=== PATIENT | female | born 1950 | race Caucasian/White ===

== ENCOUNTER → 2019-10-21 11:04 | Outpatient (CLI) | payer MEDICARE, SELFPAY ==
--- NOTE | ~2019-10-21 | MR_ITS ---
EXAMINATION: MR lumbar spine wo con DATE: 10/21/2019 11:41 INDICATION: Low back pain. Left leg pain. TECHNIQUE: Magnetic resonance imaging (MRI) of the lumbar spine was performed without intravenous con trast. Sequences included sagittal T2-weighted FSE, sagittal T2-weighted FS FSE, sagittal T1-weighted FSE, and axial T2-weighted FSE. COMPARISON: Lumbar spine MRI 06/02/2018 FINDINGS: There is 8 degrees dextrocurvature of the lumbar spine. There is 4 mm retrolisthesis of L5 on S1. Vertebral body heights are normal. There is severely decreased disc height from T12-L1 through L5-S1. There are changes of posterior fusion procedure from L3 to L5 with pedicle screws. There are changes of laminectomy at L4 and laminotomy at L3 with small seroma in the post-laminectomy space. Th e distal spinal cord signal intensity is normal. The conus medullaris is at L1. The following disc le vels are specifically discussed: L1-L2: The disc is bulging and has an annular fissure. There is moderate right and mild left facet moe int osteoarthritis. There is mild bilateral neural foraminal stenosis. There is mild central canal st enosis. L2-L3: The disc is bulging and has an annular fissure. There is moderate bilateral facet joint osteoa rthritis. There is moderate bilateral neural foraminal stenosis. There is moderate central canal sten osis. L3-L4: The disc is bulging and has an annular fissure. There is moderate right and mild left facet moe int hypertrophy. There is moderate bilateral neural foraminal stenosis. There is mild central canal s tenosis with posterior decompression. L4-L5: The disc is bulging and has an annular fissure. There is mild right facet joint hypertrophy. T here is moderate right and mild left neural foraminal stenosis. There is mild central canal stenosis with posterior decompression. L5-S1: The disc is bulging and has an annular fissure. There is severe bilateral facet joint osteoart hritis. There is moderate bilateral neural foraminal stenosis. There is mild central canal stenosis. IMPRESSION: 1. Severe lumbar spondylosis, stable from 06/02/2018. 2. Posterior fusion procedure from L3 to L5. Reviewed, dictated and finalized at location A.
== END ==
PROVIDERS: Visit Provider Nurse Practitioner Adult Health
DX: M47.26 Other spondylosis with radiculopathy, lumbar region (principal); Z98.1 Arthrodesis status
CPT/HCPCS: 72148

== ENCOUNTER 2019-11-08 12:07 | Emergency (ER) | payer MEDICARE, SELFPAY ==
--- NOTE | ~2019-11-08 | CT_ITS ---
EXAMINATION: CT brain wo con, CT orbit BI wo con EXAM DATE: 11/08/2019 13:18 INDICATION: Initial encounter following injury, with pain of the right frontal region, eye injury. D ouble vision. Fall. TECHNIQUE: Spiral CT of the head was performed without contrast. Axial, coronal and sagittal images were reviewed. Spiral CT of the orbits was performed without contrast. Axial images were reviewed. Coronal and sagittal reformatted images were also reviewed. The dose-length product (DLP) for this e xamination was 605.33 (accession [id number]), 161.23 (accession [id number]) mGy-cm. The expo sure was tailored according to patient size, and iterative reconstruction (ASIR) was used as addition al dose reduction technique. There is a prior head CT from 09/29/2012 for comparison. 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 There is no acute intraparenchymal hemor rhage. No evidence of intraparenchymal brain mass lesion. No evidence of acute infarction. There i s no mass effect or midline shift. There is no obstructive hydrocephalus suspected. There are no ext ra-axial collections. There are no calvarial acute fractures. Probable small frontal scalp contusio n. ORBIT CT: There is right orbital inferior orbital wall fracture with about 5 mm inferior displacemen t, small amount of extraconal gas within the right orbit from the maxillary sinus. The inferior rectu s muscle has slightly lower than expected course compared to the contralateral side, but does not claudia ear entrapped. Small amount of right maxillary sinus hemorrhage. No other acute fractures are identif ied. Sinuses and mastoid air cells are otherwise well aerated. Globes are symmetric and unremarkable. The retrobulbar fat is clear. IMPRESSION: 1. No acute intracranial findings. 2. Acute right orbital blowout fracture. 3. Probable small right frontal scalp contusion. Reviewed, dictated and finalized at location B. IMPRESSION: 1. No acute intracranial findings. 2. Acute right orbital blowout fracture. 3. Probable small right frontal scalp contusion.
[2019-11-08 12:33] VITALS: BP 112/52; PULSE 76; RESP 16; TEMP 36.2; O2SAT 99
--- NOTE | 2019-11-08 13:05 | ED.GENADULT ---
HPI - General Adult General Chief complaint: Fall Stated complaint: R EYE INJURY S/P FALL Time Seen by Provider: 11/08/19 12:30 Source: patient History of Present Illness HPI narrative: Patient is a 68 y/o female complaining of fall and right facial pain. She states that she was attempting to pull a weed and fell down on face instead. This occurred approximately 1 hour ago. She state that her face might have hit a rock. Her glasses were broken. She has some right face and periorbital pain. She rates her pain as 6/10. She states that her pain gets worse and shoots to her gum when she blows her nose. She also feels that she is seeing double. She denies any LOC, neck pain, back pain, chest pain or abdominal pain. She is able to move all 4 extremities and ambulate without difficulty after the fall. She states that her last Tetanus shot was 4 years ago. Related Data Home Medications Medication Instructions Recorded Confirmed levothyroxine [Synthroid] 112 mcg PO DAILY 11/08/19 metoprolol tartrate 50 mg PO DAILY 11/08/19 sertraline [Zoloft] 100 mg PO DAILY 11/08/19 Allergies Allergy/AdvReac Type Severity Reaction Status Date / Time No Known Allergies Allergy Mild Unverified 07/09/06 13:49 Review of Systems Constitutional: Constitutional: Denies chills, Denies fever(s) and Denies weakness Eyes: Eyes: Reports blurry vision and Reports diplopia ENT: Reports facial pain, Reports headache(s) and Denies neck pain Cardiovascular: Cardiovascular: Denies chest pain and Denies dyspnea Respiratory: Respiratory: Denies cough and Denies dyspnea Gastrointestinal: Gastrointestinal: Denies abdominal pain, Denies diarrhea, Denies nausea and Denies vomiting Genitourinary: Genitourinary: Denies hematuria and Denies dysuria Musculoskeletal: Musculoskeletal: Denies back pain and Denies neck pain Neurologic: Denies weakness [facility] Social History Social History Gender identity (if verbalized by the patient): Female Exam Const: General: no acute distress and well developed Orientation/consciousness: oriented to person, oriented to place, oriented to time and patient oriented x3 HENMT: Head: normocephalic Ears: external ears normal General nose exam: Normal external nose present Eyes: General: appearance normal, both eyes and all related structures Conjunctivae: conjunctivae normal Neck: Neck: normal visual inspection and full ROM Chest: Chest palpation & inspection: normal inspection of the chest and no tenderness Resp: Effort & Inspection: normal respiratory effort Auscultation: clear to auscultation bilaterally Cardio: Rate: regular rate Rhythm: regular rhythm GI: GI Palp: No abdominal tenderness and Yes Soft to palpation Skin: General skin exam: normal color and turgor normal Trauma: abrasion (right forearm and right face) Neuro: General: oriented to person, oriented to place, oriented to time and patient oriented x3 Cranial nerves: Yes Bilaterally intact EOM present Cognition (Neuro): normal cognition Speech: normal speech Motor exam (neuro): 5/5 motor strength present throughout Sensory Exam: normal sensation Coordination: [id number] test normal and [id number]-[id number] test normal Extrem: General: normal to inspection, full ROM and no pedal edema Psych: Appearance: grossly normal Mental Status: mental status grossly normal Affect: normal affect Course Consultations Consultation #1: Discussed with Dr. Parisi, who states that patient can follow up with him tomorrow. He also recommends starting patient on Keflex. Date: 11/08/19 Time: 14:29 Vital Signs Vital signs: Vital Signs Temperature 36.2 C L 11/08/19 12:33 Pulse Rate 76 11/08/19 12:33 Respiratory Rate 16 11/08/19 12:33 Blood Pressure 112/52 L 11/08/19 12:33 Pulse Oximetry 99 11/08/19 12:33 Temperature 36.2 C L 11/08/19 12:33 Pulse Rate 76 11/08/19 12:33 Respiratory Rate 16
[2019-11-08 14:51] VITALS: BP 107/90; PULSE 67; RESP 16; TEMP 36.9; O2SAT 98
== END 2019-11-08 14:52 | disposition home or self-care (01) ==
PROVIDERS: Emergency Provider Emergency Medicine
DX: S02.31XA Fracture of orbital floor, right side, initial encounter for closed fracture (principal); S50.811A Abrasion of right forearm, initial encounter; S00.81XA Abrasion of other part of head, initial encounter; W18.39XA Other fall on same level, initial encounter
CPT/HCPCS: 70450; 70480; 99284

== ENCOUNTER 2020-08-02 15:00 | Emergency (ER) | payer MEDICARE, SELFPAY ==
--- NOTE | ~2020-08-02 | XR_ITS ---
EXAMINATION: XR foot RT 2V EXAM DATE: 08/02/2020 15:41 INDICATION: POSS FB dist Rt 2nd metatarsal x 4 days. TECHNIQUE: Frontal and lateral projections of the right foot.. There is no prior study for comparis on. FINDINGS: On the lateral projection there is a tiny sliver-like density identified in the subcutaneo us fat volar aspect of the forefoot. This has been indicated on the lateral projection for your revie w. Can't specifically identify this on the frontal projection. There are no acute fractures identifie d. IMPRESSION: Tiny sliver-like foreign body along the volar fat pad of forefoot. Reviewed, dictated and finalized at location B.
[2020-08-02 15:06] VITALS: BP 137/66; PULSE 79; RESP 12; TEMP 36.4; O2SAT 98
--- NOTE | 2020-08-02 15:06 | ED.LOWEXIN ---
HPI - Extremity Injury (Lower) General Chief Complaint: Extremity Problem,Nontraumatic Stated Complaint: FB in rt foot Time Seen by Provider: 08/02/20 15:08 Source: patient and RN notes reviewed Mode of arrival: ambulatory Limitations: no limitations History of Present Illness HPI Narrative: 69-year-old female presents to the [facility] with complaints of foot pain. States 5 days ago she went to put her garden shoes on and since has felt pain, redness and swelling to the ball of her foot. Has had increased pain when she walks. Feels like there is an object in her planter right foot. Last Tdap 2017 Related Data Home Medications Medication Instructions Recorded Confirmed levothyroxine [Synthroid] 112 mcg PO DAILY 11/08/19 08/02/20 metoprolol tartrate 50 mg PO DAILY 11/08/19 08/02/20 sertraline [Zoloft] 100 mg PO DAILY 11/08/19 08/02/20 [place] Mix PO 11/09/19 betamethasone valerate 0.1 % 1 applic TOPICAL BID PRN 11/09/19 08/02/20 topical ointment clobetasol 0.05 % topical ointment TOPICAL 11/09/19 dexamethasone 0.5 mg/5 mL oral 0.5 mg PO BID PRN 11/09/19 08/02/20 solution triamcinolone acetonide 0.1 % 1 applic TOPICAL DAILY 11/09/19 08/02/20 topical ointment Allergies Allergy/AdvReac Type Severity Reaction Status Date / Time No Known Allergies Allergy Mild Verified 08/02/20 15:08 Review of Systems Review of Systems: All systems reviewed & are unremarkable except as noted in HPI and below Constitutional: Constitutional: Reports no additional constitutional complaints, Denies chills and Denies fever(s) Eyes: Eyes: Reports no additional eye complaints Cardiovascular: Cardiovascular: Reports no additional cardiovascular complaints and Denies chest pain Respiratory: Respiratory: Reports no additional respiratory complaints, Denies cough and Denies dyspnea Gastrointestinal: Gastrointestinal: Reports no additional gastrointestinal complaints Musculoskeletal: Musculoskeletal: Reports as per HPI Integumentary/Breasts: Skin/Breast: Reports as per HPI Neurologic: Reports system reviewed and no additional complaints, except as documented Psychiatric: Psychiatric: Reports no additional psychiatric complaints Hematologic/Lymphatic: Hematologic/Lymphatic: Reports no additional hematologic/lymphatic complaints PMFSH Surgical History Surgical History History of back surgery 2017 - spinal fusion lumber, cervical 2006 History of cancer surgery 2010 History of cholecystectomy 2018 Social History Social History Smoking status: Former smoker Alcohol intake: current Substance use: never Substance use type: does not use Gender identity (if verbalized by the patient): Female Comments At the time of my signature, I reviewed and agree with the nursing past medical, surgical, social, and family history. There is no relevant family history pertinent to the patient complaint. Exam Const: General: healthy appearing, no acute distress and alert Nutritional Appearance: well nourished Orientation/consciousness: patient oriented x3 Limitations: no limitations HENMT: Head: normal to inspection Neck: Neck: normal visual inspection, no lymphadenopathy and no meningeal signs Chest: Chest palpation & inspection: normal inspection of the chest Resp: Effort & Inspection: normal respiratory effort and no use of accessory muscles Auscultation: clear to auscultation bilaterally, no crackles, no rales, no rhonchi and no wheezes Cardio: Rate: regular rate Rhythm: regular rhythm Back/Spine/Pelvis: Back: no CVA tenderness Skin: General skin exam: normal color Wounds: wounds noted (Plantar aspect right foot, small black sliver seen, ) Neuro: General: patient oriented x3, moves all extremities, no meningeal signs and no focal motor deficits Speech: normal speech Gait exam (Neuro): Normal gait present Extrem:
[2020-08-02 15:12] VITALS: BP 137/66; PULSE 79; RESP 12; TEMP 36.4; O2SAT 98
--- NOTE | 2020-08-02 17:58 | PC.NURSE ---
1635: after foot soak, the foreign no longer noted-approx 5mm linear opening noted to plantar aspect right foot.
== END 2020-08-02 16:43 | disposition home or self-care (01) ==
PROVIDERS: Emergency Provider Nurse Practitioner
DX: S90.851A Superficial foreign body, right foot, initial encounter (principal); W26.8XXA Contact with other sharp object(s), not elsewhere classified, initial encounter; Z87.891 Personal history of nicotine dependence; I10 Essential (primary) hypertension; E03.9 Hypothyroidism, unspecified; Z85.40 Personal history of malignant neoplasm of unspecified female genital organ
CPT/HCPCS: 73620; 99213; G0463

== ENCOUNTER → 2021-05-23 12:31 | Outpatient (CLI) | payer MEDICARE, SELFPAY ==
--- NOTE | ~2021-05-23 | MR_ITS ---
EXAMINATION: MR lumbar spine wo con DATE: 05/23/2021 13:07 INDICATION: Radiculopathy, lumbar region. TECHNIQUE: Magnetic resonance imaging (MRI) of the lumbar spine was performed without intravenous con trast. Sequences included sagittal T2-weighted FSE, sagittal T2-weighted FS FSE, sagittal T1-weighted FSE, and axial T2-weighted FSE. COMPARISON: Lumbar spine MRI 10/21/2019 FINDINGS: There is 3 degrees dextrocurvature of thoracolumbar spine. There is 3 mm retrolisthesis of L5 on S1. There are changes of posterior fusion procedure from L3 to L5 with pedicle screws. Vertebra l body heights are normal. There is severely decreased disc height from T10-T11 through L5-S1 with en dplate remodeling. There is interbody fusion at L4-L5. The distal spinal cord signal intensity is nor mal. The conus medullaris is at L1. There is a chronic fluid collection at the L4-L5 postlaminectomy surgical bed measuring 3.3 x 1.0 x 3.0 cm, likely a seroma. The following disc levels are specificall y discussed: L1-L2: The disc is bulging and has an annular fissure. There is severe bilateral facet joint osteoart hritis. There is mild bilateral neural foraminal stenosis. There is mild central canal stenosis. L2-L3: The disc is bulging and has an annular fissure. There is severe bilateral facet joint osteoart hritis. There is moderate bilateral neural foraminal stenosis. There is mild central canal stenosis. L3-L4: The disc is bulging and has an annular fissure. There is moderate bilateral facet joint hypert rophy. There is moderate right and mild left neural foraminal stenosis. There is mild central canal s tenosis with posterior decompression. L4-L5: There is moderate bilateral facet joint hypertrophy. There is moderate right and mild left sydnee ral foraminal stenosis. There is mild central canal stenosis with posterior decompression. L5-S1: The disc is bulging and has an annular fissure. There is severe bilateral facet joint osteoart hritis. There is moderate right and severe left neural foraminal stenosis. There is mild central thad l stenosis. IMPRESSION: 1. Severe lumbar spondylosis, stable from 10/21/2019. 2. Posterior fusion procedure from L3 to L5. Reviewed, dictated and finalized at location A.
== END ==
PROVIDERS: Visit Provider Nurse Practitioner Adult Health
DX: M54.16 Radiculopathy, lumbar region (principal); M47.816 Spondylosis without myelopathy or radiculopathy, lumbar region; Z98.1 Arthrodesis status
CPT/HCPCS: 72148

== ENCOUNTER → 2022-10-02 09:32 | Outpatient (CLI) | payer MEDICARE, SELFPAY ==
--- NOTE | ~2022-10-02 | MR_ITS ---
EXAMINATION: MR ankle RT wo con DATE: 10/02/2022 10:06 INDICATION: Achilles tendinitis TECHNIQUE: Magnetic resonance imaging (MRI) of the right ankle was performed without intravenous cont rast. Sequences included sagittal, coronal, and axial proton-density weighted fast spin echo without and with fat saturation. COMPARISON: None. FINDINGS: Medial ankle ligaments: Deep and superficial deltoid ligaments as well as the spring ligament are normal. Lateral ankle ligaments: The anterior and posterior inferior tibiofibular ligaments are normal. The anterior talofibular, calc aneofibular and posterior talofibular ligaments are normal. Tendons: Enthesopathy with moderate tendinosis at the distal Achilles tendon with moderate-sized Achilles calc aneal enthesophytes. Small amount of fluid in the underlying retrocalcaneal bursa consistent with mil d bursitis. The peroneus longus and brevis tendons are normal. The tibialis anterior and extensor kleber lucis longus and extensor digitorum longus tendons are normal. The tibialis posterior, flexor digitor um longus and flexor hallucis longus tendons are normal. Plantar fascia: Small plantar calcaneal spur at the insertion of the normal plantar aponeurosis. Bones/other: Bone alignment is normal. Normal marrow signal with no fracture or pathologic marrow replacing proces s. Fluid: Physiologic amount of fluid in the joint spaces. IMPRESSION: 1. Moderate insertional tendinosis/enthesopathy of the distal Achilles tendon with moderate-sized Ach illes calcaneal enthesophytes and associated mild retrocalcaneal bursitis. Reviewed, dictated and finalized at location A. IMPRESSION: 1. Moderate insertional tendinosis/enthesopathy of the distal Achilles tendon w ith moderate-sized Achilles calcaneal enthesophytes and associated mild retroca lcaneal bursitis.
== END ==
PROVIDERS: PCP Podiatrist Foot & Ankle Surgery; Visit Provider Podiatrist Foot & Ankle Surgery
DX: M76.61 Achilles tendinitis, right leg (principal)
CPT/HCPCS: 73721

== ENCOUNTER 2023-12-24 10:46 | Outpatient (CLI) | payer MEDICARE, SELFPAY ==
[2023-12-24 11:19] LABS: Hematocrit 46.5 % (37.0-47.0); Immature Platelet Fraction Pct 4.7 % (0.9-11.2); Mean Corpuscular HGB Conc 32.3 g/dl (32-36); Mean Corpuscular Hemoglobin 29.3 pg (26-34); Mean Corpuscular Volume 90.8 fl (80-100); Platelet Count Result 123 k/mm3 (150-375); Red Blood Count 5.12 M/mm3 (4.2-5.4); Red Cell Distribution Width 14.3 % (11.5-14.5); White Blood Count 5.1 K/mm3 (4.5-10.0)
[2023-12-24 11:28] LABS: Alanine Aminotransferase 32 U/L (6-35); Albumin Level 4.4 g/dL (3.5-5.1); Alkaline Phosphatase 92 U/L (38-126); Anion Gap 6 mmol/L (4-12); Aspartate Amino Transferase 34 U/L (14-36); Bilirubin,Total 1.3 mg/dL (0.2-1.3); Blood Urea Nitrogen 17 mg/dL (7-17); Calcium 9.6 mg/dL (8.4-10.2); Carbon Dioxide 28 mmol/L (22-30); Chloride 104 mmol/L (98-107); Cholesterol 147 mg/dL (0-200); Estimated Glomerular Filt Rate > 60; Glucose 103 mg/dL (65-110); HDL Direct 68 mg/dL; Hemoglobin A1C 5.6 % (<5.7); Potassium 4.3 mmol/L (3.4-5.0); Sodium 138 mmol/L (137-145); Triglycerides 68 mg/dL (<150)
[2023-12-24 11:39] LABS: LDL Cholesterol Direct 57 mg/dL
[2023-12-24 11:59] LABS: Vitamin D 25 Hydroxy 38.8 ng/mL
[2023-12-24 12:13] LABS: Thyroid Stimulating Hormone Reflex < 0.015 uIU/mL (0.465-4.68)
[2023-12-24 13:05] LABS: Free T4 Free Thyroxine Reflex 1.56 ng/dL (0.78-2.19)
[2023-12-24 13:48] LABS: Total Triiodothyronine (T3) 1.48 NG/ML (0.97-1.69)
== END 2023-12-24 10:47 | disposition home or self-care (01) ==
LOC: ANHLAB 10:47
PROVIDERS: PCP Nurse Practitioner Family; Visit Provider Nurse Practitioner Family
DX: N89.8 Other specified noninflammatory disorders of vagina (principal); K14.1 Geographic tongue; E55.9 Vitamin D deficiency, unspecified; M47.816 Spondylosis without myelopathy or radiculopathy, lumbar region; F32.9 Major depressive disorder, single episode, unspecified; E03.9 Hypothyroidism, unspecified; I10 Essential (primary) hypertension; Z76.89 Persons encountering health services in other specified circumstances; Z13.1 Encounter for screening for diabetes mellitus; Z85.44 Personal history of malignant neoplasm of other female genital organs; Z68.30 Body mass index [BMI] 30.0-30.9, adult
CPT/HCPCS: 36415; 80053; 80061; 82306; 83036; 84439; 84443; 84480; 85027; 85055

== ENCOUNTER 2024-06-21 14:15 | Outpatient (CLI) | payer MEDICARE, SELFPAY ==
--- OUTSIDE RECORDS SUMMARY | 2024-06-21 14:19 | XMS_ITS | Encounter Summary ---
Author Organization [facility] Health Address [address] [place] [address] Care Team Providers Care Envelope Sealing Machine Operator Name Role Phone Tammy Cook MD Unavailable [phone] Sonia Mosquera MD Unavailable [phone] Isaac Flores MD Unavailable Nishant Eastman MD Unavailable Madalyn Car Primary Care Provider [facility] Kassandra Allen APRN-[employer] Primary Care Provider + Reason for Visit * Reason Onset Date Comments MEDICATION REFILL 12/06/2020 Encounter Details Date Type Department Care Team (Late st Contact Info) Description 12/06/2020 Refill [facility] Medicine [address] [facility] [address] [place] [address] Jelena Paul MD [address] [place] [address] MEDICATION REFILL Social History Tobacco Use Types Packs/Day Years Used Date Smoking Tobacco: Former Cigarettes Q uit: 09/01/1993 Smokeless Tobacco: Never Alcohol Use Standard Drinks/Week Comments No 0 (1 standard drink = 0.6 oz pur e alcohol) OCCASIONAL Comments No Sex and Gender Information Value Date Recorded Sex Assigned at Female 03/17/2021 10:13 PM HONEY PRODUCER Legal Sex Female 9:32 AM HONEY PRODUCER Gender Identity Female 03/17/2021 10:13 PM HONEY PRODUCER Sexual Orientation Straight 03/17/2021 10 :13 PM HONEY PRODUCER documented as of this encounter Plan of Treatment Upcoming Encounters Date Type Department Care Team (Late st Contact Info) Description 10/24/2024 10:30 AM CDT Office Visit [facility] - Dermatology [address] [place] [address], [place] [address] Sonia Mosquera MD [address] [place] [address] [address] [place] [address] 03/21/2025 9:50 AM HONEY PRODUCER [facility] - PROFESSOR OF EARLY CHILDHOOD EDUCATION [address] [place] [phone] Tammy Cook MD [address] [facility] [address] [place] [address] 05/29/2025 11:30 AM CDT Office Visit [facility] - PROFESSOR OF EARLY CHILDHOOD EDUCATION [address], [facility] [address] [place] [phone] Rangel Lopez MD [address] [facility] [address] [place] [phone] documented as of this encounter Visit Diagnoses Diagnosis Essential hypertension documented in this encounter Care Teams Envelope Sealing Machine Operator Relationship Specialty Start Date End Date Madalyn Car PCP - General 03/10/23 01/06/24 Kassandra Allen APRN-[employer] [address] [place] [id number] PCP - General Nurse Practitioner 01/07/24 Tammy Cook MD [address] [facility] [address] [place] [address] Obstetrics and Gynecology 09/23/18 Sonia Mosquera MD [address] [place] [address] Dermatology 09/23/18 Isaac Flores MD [address] [place] [address] Gastroenterology 09/23/18 Nishant Eastman MD [address] [place] [id number] Pain Management Anesthesiology 09/23/18 documented as of this encounter
--- OUTSIDE RECORDS SUMMARY | 2024-06-21 14:19 | XMS_ITS | Clinical Summary ---
Author Organization [facility] Address [address] [place] [address] Care Team Providers Care Reinforcing Metal Worker Name Role Phone Madalyn Car MD Primary Care Provider Allergies No known active allergies Medications dicyclomine (BENTYL) 20 MG tablet Take 1 tablet (20 mg total) by mouth every 6 (six) hours. 20 tablet 09/22/2023 Active Social History Tobacco Use Types Packs/Day Years Used Date Smoking Tobacco: Never Passive Smoke Exposure: Never Smokeless Tobacco: Never Tobacco Cessation:Counseling Given: No Comments Unknown Sex and Gender Information Value Date Recorded Sex Assigned at Not on file Legal Sex Female 12:50 PM CDT Gender Identity Not on file Sexual Orientation Not on file Last Filed Vital Signs Vital Sign Reading Time Taken Comments Blood Pressure 140/88 09/22/2023 1:18 PM CDT Pulse 90 09/22/2023 1:18 PM CDT Temperature 37.1 C (98.7 F) 09/22/2023 1:18 PM CDT Respiratory Rate 18 09/22/2023 1:18 PM CDT Oxygen Saturation 99% 09/22/2023 1:18 PM CDT Inhaled Oxygen Concentration - - Weight 68 kg (150 lb) 09/22/2023 3:59 PM CDT Height 165.1 cm (5' 5 ) 09/22/2023 3:59 PM CDT Body Mass Index 24.96 09/22/2023 3:59 PM CDT Plan of Treatment Health Maintenance Due Date Last Done Comments Colorectal Cancer Screening Colonoscopy (10 Years) 1950 Hepatitis C 12/28/1969 Annual Medicare Wellness Visit 12/28/2016 Mammogram Screening 03/18/2023 03/18/2021, 09/29/2019, 07/17/2017, Additional history exists COVID-19 Vaccine ( season) 2023 12/10/2022, 12/02/2021, 07/10/2021, Additional history exists DTaP, Tdap and Td Vaccines (2 - Td or Tdap) 03/24/2026 03/24/2016 RSV Immunization or 60+ Years (1 - 1-dose 75+ series) 12/28/2026 Dexa Scan (General) Completed 03/18/2021, Pneumococcal Vaccine: 50+ Years Completed 09/18/2022, 09/26/2019, 07/17/2017, Additional history exists Zoster Vaccines Completed 02/03/2023, 04/2022, 02/02/2013 Meningococcal B Vaccine Aged Out No l onger eligible based on patient's age to complete this topic Meningococcal Vaccine Aged Out No viraj margie eligible based on patient's age to complete this topic RSV Immunizations Under 20 Months Aged Out No longer eligible based on patient's age to complete this topic Insurance [facility] Care Teams Reinforcing Metal Worker Relationship Specialty Start Date End Date Madalyn Car MD [address] [place] [address] PCP - General [facility] MEDIC[facility] 09/22/23
--- OUTSIDE RECORDS SUMMARY | 2024-06-21 14:19 | XMS_ITS | Clinical Summary ---
Author Organization [facility] Address [address] [place] [address] Care Team Providers Care Organic Section Technical Lead Name Role Phone Tammy Cook MD Unavailable [phone] Sonia Mosquera MD Unavailable Isaac Flores MD Unavailable Francisco J Eastman MD Unavailable Kassandra Allen APRN-[facility] Primary Care Provider + Source Comments [facility],non-owned Affiliates and Associated Physician Practices is amultiple site organization consisting of ambulatory clinics and hospital sitesin [place], [place] and [place]. This disclosure is being madepursuant to the Care Everywhere program and may not contain all information available regarding this patient. Last updated 17.[facility] Allergies No known active allergies Medications * This document contains information received from the source organization and may not represent a complete record from that organization. * Be aware that medications may not be up to date on this document. Alwaysverify current medications with the patient. levothyroxine (SYNTHROID) 112 MCG tabletIndicatio ns:Hypothyroidi sm, unspecified type Take 1 (one) tablet by mouth once daily 90 tablet 3 2 Active gabapentin (NEURONTIN) 600 MG tablet Take 1 (one) tablet by mouth 3 times daily 1 Active losartan (COZAAR) 50 MG tablet Take 1 (one) tablet by mouth once daily 90 tablet 3 2 Active Additional Information Patient taking differently: 25 mgOral DAILY, Reported on 06/03/2024 sertraline (Zoloft) 100 MG tabletIndicatio ns:Mild depression Take 1 (one) tablet by mouth once daily 30 tablet 2 Active meloxicam (Mobic) 15 MG tablet 5 Active DHEA 25 MG Active clobetasol (Temovate) 0.05 % cream Apply to affected area 2 times daily Active Chlorhexidine Gluconate Active cyclobenzaprine (Flexeril) 10 MG tablet Take 1 (one) tablet by mouth 3 times daily as needed for Muscle Spasms Active rosuvastatin (Crestor) 10 MG tablet Take 1 (one) tablet by mouth once daily Active fesoterodine CR 24hr (Toviaz) 4 MG tablet Take 1 (one) tablet by mouth once daily 90 tablet 2 5 Active fesoterodine CR 24hr (Toviaz) 4 MG tablet Take 1 (one) tablet by mouth once daily 30 tablet 1 5 025 Discontin ued(Reord er) Active Problems Problem Noted Date Diagnosed Date Depression, recurrent 09/05/2022 12/01/2022 Class 1 obesity due to exces s calories without serious comorbidity with body mass index (BMI) of 32.0 to 32.9 in adult 01/14/2022 12/01/2022 Overview (12/01/2022): Encouraged healthy diet, exercise, weight loss History of cancer of vagina 01/14/202211/16 Overview (12/01/2022): care per tree sapper. 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 Raw areas around vagina since radiation to area in 2009, getting worse past few years, painful, itchy, bleeding, open sores, has used TAC/aquaphor/LCD cream most days x 8 years, has also used a variety of other OTC topicals (crisco, olive oil, A&D ointment, diaper rash cream, burn gel, aloe, sitz bath), no previous cultures or oral treatment Sees Dr. Cook regularly at [facility]. Now once a year High risk HPV negative. Bx in showed LS&A and ACD. Rx: TMC ointment + Protopic ointment. Protopic too irritating. Assessment & Plan (10/24/2020 5:13 PM CDT): Stable - Continue clobetasol ointment to the entire vulvar vaginal area daily - Continue calcipotriene to the perianal area Assessment & Plan (07/23/2020 9:12 PM CDT): - Stable genital LSA today, tongue lesions look more c/w geographic tongue or psoriatic in nature today. Continue to monitor. - Continue Calcipotriene ointment BID AA to affected areas perineum (plan to Rx Calcipotriene cream BID in the future since only cream covered by pt insurance but first recommend DIY patch testing to small area inner arm) - Continue Clobetasol ointment QD AA mouth & perineum QD Assessment & Plan (05/01/2020 3:18 PM CDT): Improved but not in complete control Start Dovonex bid use Good Rx Continue clob oint once daily Erosion of oral mucosa 12/21/2019 Assessment & Plan (05/01/2020 3:13 PM CDT): Start bland oral hygiene care product. clob oint bid prn. Obesity (BMI 30-39.9) 01/29/2017 MIKEY (obstructive sleep apnea) 11/19/2016 Generalized anxiety disorder 01/22/2011 Acute vulvitis 12/11/2010 Essential (primary) hypertension 08/12/2010 Hypothyroidism 08/12/2010 Venous insufficiency (chronic) (peripheral) 07/18 Chronic kidney disease, stage 3a 08/12/2010 12/01/2022 Resolved Problems Problem Noted Date Diagnosed Date Resolved Date Pain of left lower extremity 04/18/2020 03/23/2024 Diarrhea 03/29/2014 06/28/2014 Sprain of medial collateral ligament of knee 4 03/23/2024 Malignant neoplasm of vagina 11/14/2011 03/08/2021 Overview (07/17/2017): Overview: S/p Chemo, radiation- 6 weeks Vaginectomy, hysterectomy Other specified disorders of Eustachian tube, unspecified ear 06/08/2011 03/23/2024 Major depressive disorder, single episode 01/22/2011 03/07/2021 Encounters Date Type Department Care Team Description 06/03/2024 3:45 PM CDT Office Visit [facility] - INSPECTOR RAG SORTING [address] [facility] [address] [place] [address] Pattie Betancur Che, MD Stress incontinence of urine (Primary Dx); Urge incontinence 06/03/2024 Travel 05/27/2024 Refill [facility] - INSPECTOR RAG SORTING [address] [facility] [address] [place] [address] Pattie Betancur Che, MD MEDICATION REFILL 04/28/2024 10:00 AM CDT Procedure visit [facility] - Dermatology [address] [place] [address], [place] [phone] Rangel Velasco MD Basal cell carcinoma (BCC) of right lower leg 04/28/2024 Travel 04/18/2024 2:40 PM COMPLEX CARE NURSE Office Visit [facility] - Dermatology [address] [facility], [place] [address] Sonia Mosquera MD Lichen sclerosus et atrophicus (Primary Dx); Actinic skin damage; Lentigines; Seborrheic keratoses; Multiple benign melanocytic nevi of upper and lower extremities and trunk; Inflamed seborrheic keratosis; Neoplasm of uncertain behavior 04/18/2024 Travel from Last 3 Months Immunizations Immunization Administration Dates Next Due INFLUENZA VACCINE, TRIV. (AF LURIA, FLUZONE TRIVALENT; 6MO+) (IIV3) 12/13/2016,12/18/2014,02/02/2013 Covid Moderna primary monova lent 12+ yr 0.5mL 01/04/2021,05/07/2020,03/28/2020 Covid Pfizer primary Monoval ent 12+ yr 0.3ml 12/10/2022 HEP A VACCINE, ADULT 09/22/2016,03/24/2016 INFLUENZA VACCINE 12/03/2020, 0,12/21/2017,2015,01/10/2014,12/12/2010 INFLUENZA VACCINE, ADJUVANTE D, QUADR. (FLUAD QUADRIVALENT; 65Y+) (AIIV4) 11/19/2019 INFLUENZA VACCINE, HIGH-DOSE , QUADR. (FLUZONE HIGH-DOSE QUADRIVALENT; 65Y+), 0.7 ML (HD-IIV4) 12/07/2018 Influenza Intradermal 11/14/2011 MODERNA SARS-COV-2 COVID-19 VACCINE 0.25ML 07/10/2021 PNEUMOCOCCAL PPSV23 09/26/2019,02/02/2013 Pneumococcal Pcv13 Conj 07/17/2017 TDAP (7yrs+) 03/24/2016 ZOSTER VACCINE, LIVE 02/02/2013 Family History Medical History Relation Name Comments Cancer Brother 1 Hypertension Brother 2 Hypertension Father None Known Maternal Aunt None Known Maternal Grandfather Cancer Maternal Grandmother None Known Maternal Uncle Hypertension Mother Cancer - Breast Other 1 couisn Cancer - Breast Other 2 cousin None Known Paternal Aunt None Known Paternal Grandfather Cancer Paternal Grandmother None Known Paternal Uncle None Known Sister Asthma Neg Hx CVA Neg Hx Cancer - Other Neg Hx Cancer - Skin, Melanoma Neg Hx Cancer - Skin, Non Melanoma Neg Hx Eczema Neg Hx Hemophilia Neg Hx Psoriasis Neg Hx Relation Name Status Comments Brother 1 Brother 2 Father Maternal Aunt Maternal Grandfather Maternal Grandmother Maternal Uncle Mother Other 1 couisn Other 2 cousin Paternal Aunt Paternal Grandfather Paternal Grandmother Paternal Uncle Sister Social History Tobacco Use Types Packs/Day Years Used Date Smoking Tobacco: Former Cigarettes Q uit: 09/01/1993 Smokeless Tobacco: Never Tobacco Cessation:Counseling Given: Not Answered Alcohol Use Standard Drinks/Week Comments Yes 0 (1 standard drink = 0.6 oz pur e alcohol) OCCASIONAL PHQ-2 Answer Date Recorded Patient Health Questionnaire-2 Score 2 06/03/2024 Comments No Sex and Gender Information Value Date Recorded Sex Assigned at Female 03/17/2021 10:13 PM COMPLEX CARE NURSE Legal Sex Female 9:32 AM COMPLEX CARE NURSE Gender Identity Female 03/17/2021 10:13 PM COMPLEX CARE NURSE Sexual Orientation Straight 03/17/2021 10 :13 PM COMPLEX CARE NURSE Last Filed Vital Signs Vital Sign Reading Time Taken Comments Blood Pressure 130/76 06/03/2024 1:57 PM CDT Pulse 88 03/07/2021 2:34 PM COMPLEX CARE NURSE Temperature 36 C (96.8 F) 03/07/2021 2:34 PM COMPLEX CARE NURSE Respiratory Rate 18 04/18/2020 2:10 PM COMPLEX CARE NURSE Oxygen Saturation 99% 03/07/2021 2:34 PM COMPLEX CARE NURSE Inhaled Oxygen Concentration - - Weight 95.3 kg (210 lb 3.2 oz) 06/03/2024 1:57 P M CDT Height 175.3 cm (5' 9 ) 06/03/2024 1:57 PM CDT Body Mass Index 31.04 06/03/2024 1:57 PM CDT Plan of Treatment Upcoming Encounters Date Type Department Care Team (Late st Contact Info) Description 10/24/2024 10:30 AM CDT Office Visit [facility] - Dermatology [address] [place] [address], [place] [address] Sonia Mosquera MD [address] [place] [address] [address] [place] [address] 03/21/2025 9:50 AM COMPLEX CARE NURSE Office Visit [facility] - INSPECTOR RAG SORTING [address] [place] [phone] Tammy Cook MD [address] [facility] [address] [place] [address] 05/29/2025 11:30 AM CDT Office Visit [facility] - INSPECTOR RAG SORTING [address] [place] [address] Rangel Lopez MD [address] [place] [address] Health Maintenance Due Date Last Done Comments COLOGUARD (AGES 45-75) - COLON CA SCREENING 1950 CT COLONOGRAPHY - COLON CA SCREENING 1950 FIT - COLON CA SCREENING 1950 FLEX SIG - COLON CA SCREENING 1950 ZOSTER VACCINE (2 of 3) 03/30/2013 02/02/2013 MEDICARE AWV 12 MONTHS 03/07/2022 03/07/2021, 09/26/2019, 09/23/2018 COVID-19 VACCINE ( season) 2023 12/10/2022, 12/02/2021, 07/10/2021, Additional history exists MAMMOGRAM 01/06/2026 01/07/2024, 02/18, 03/18/2021, Additional history exists DTAP/TDAP/TD VACCINES (2 - Td or Tdap) 03/24/2026 03/24/2016 Respiratory Syncytial Virus (RSV) Vaccine Pt: or over 60 yrs (1 - 1-dose 75+ series) 12/28/2026 COLON MONITORING 10/30/2029 10/31/2019, , 10/31/2019 COLONOSCOPY - COLON CA SCREENING 10/30/2029 10/31/2019, 10/31/2019, 10/31/2019 Colorectal Cancer Screening 10/30/2029 HEPATITIS C SCREENING Completed 03/24/2016 PNEUMOCOCCAL VACCINE 50+ Completed 020, 07/17/2017, 02/02/2013 BONE DENSITY TESTING Completed 03/18/2021 INFLUENZA VACCINE Completed 11/23/2023, , 11/19/2019, Additional history exists DEPRESSION SCREENING Completed 03/15/2024, 03/07/2021, 09/26/2019, Additional history exists HEPATITIS B VACCINE Aged Out No longe r eligible based on patient's age to complete this topic HIB VACCINE Aged Out No longer eligi ble based on patient's age to complete this topic HPV VACCINE Aged Out No longer eligi ble based on patient's age to complete this topic MENINGOCOCCAL (Group B) VACCINE SHARED DECISION-MAKING Aged Out No longer eligible based on patient's age to complete this topic MENINGOCOCCAL GROUPS A/C/Y/W VACCINE Aged Out No longer eligible based on patient's age to complete this topic Procedures Procedure Name Priority Date/Time Associated Diagnosis Comments CO CHMSRG MOHS MG TQ T/A/L 1ST STAG 5 BLOCKS Routine 04/28/2024 12:02 PM CDT Basal cell carcinoma (BCC) of right lower leg CO TANGNTL BX SKIN EA SEP ADDL Routine 04/18/2024 4:28 PM COMPLEX CARE NURSE Neoplasm of uncertain behavior CO TANGNTL BX SKIN SINGLE LES Routine 04/18/2024 4:28 PM COMPLEX CARE NURSE Neoplasm of uncertain behavior CO DESTRUCT BENIGN LESION, 1-14 Routine 04/18/2024 4:28 PM COMPLEX CARE NURSE Inflamed seborrheic keratosis DERMATOPATHOLOGY Routine 04/18/2024 12:0 0 AM COMPLEX CARE NURSE Neoplasm of uncertain behavior MAMMO BILAT SCREENING W CECILIO Routine 01/07/2024 12:15 PM COMPLEX CARE NURSE Visit for screening mammogram DEXA BONE DENSITY AXIAL SKELETON Routine 03/18/2021 11:52 AM COMPLEX CARE NURSE Post-menopausal ENDOSCOPY, COLON, SCREENING Routine 10/31/2019 7:40 AM CDT Screen for colon cancer HEPATITIS C AB W/RFLX TO HCV RNA QN PCR Routine 03/24/2016 9:35 AM COMPLEX CARE NURSE from Last 3 Months or Most Recently Relevant to Health Maintenance Results * CO CHMSRG MOHS MG TQ T/A/L 1ST STAG 5 BLOCKS (04/28/2024 12:02 PM CDT) Narrative Rangel Velasco MD - 04/28/2024 12:02 PM CDT Rangel Velasco MD 04/28/2024 2:36 PM Mohs Micrographic Surgery Operative Note Procedure: Mohs micrographic surgery Date of service: 04/28/2024 Location: Right florez Preop diagnosis: Basal cell carcinoma, infiltrative subtype Postop diagnosis: Same Mohs AUC score: 9 Number of stages: 1 Preop size: 2.0 x 1.8 cm Postop size: 2.0 x 1.9 cm Depth of final defect: adipose Previous dermpath accession #: [id number] Repair type: second intent Mohs accession #: [id number] Surgeon and Pathologist: Rangel Velasco MD served as both surgeon and pathologist. No other physician was involved in the cancer removal or pathology interpretation. Assistants: Luis Alberto Gandhi MD Indications for Mohs Surgery Removal of the patient's tumor is complicated by the following clinical features: Clinical area critical for tissue conservation (Area M: cheeks, forehead, scalp, neck, jawline, pretibial surface). Aggressive pathology. Based on my medical judgement, Mohs surgery is the most appropriate treatment for this cancer compared to other treatments. I discussed alternative treatments to Mohs surgery and specifically discussed the risks and benefits of curettage, excision with permanent sections, and foregoing treatment. The rationale for Mohs was explained to the patient and consent was obtained. The risks, benefits and alternatives to therapy were discussed in detail. Specifically, the risks of infection, scarring, bleeding, prolonged wound healing, incomplete removal, allergy to anesthesia, nerve injury and recurrence were addressed. Prior to the procedure, the treatment site was clearly identified and confirmed by the patient. All components of [place] Protocol/PAUSE Rule completed. STAGE I: The patient was placed on the operating table. The cancer was identified and outlined. The entire surgical field was prepped with hibiclens. The surgical site was anesthetized using Lidocaine 1% with epinephrine 1:100,000 buffered with sodium bicarbonate 8.4% in a 1:10 ratio.The area of clinically apparent tumor was debulked with a 4 mm curette. The layer of tissue was then surgically excised using a #15 blade and was then transferred onto a specimen sheet maintaining the orientation of the specimen. Hemostasis was obtained using monopolar electrodesiccation. The wound site was then covered with a dressing while the tissue samples were processed for examination. The specimen was oriented, mapped and divided. Each section was then inked and processed in the Mohs lab using the Mohs protocol and submitted for frozen section. The histopathologic sections were reviewed by the surgeon in conjunction with the reference map. Total blocks: 1 Total slides: 3 Frozen sections were examined by the surgeon. No additional tumor was identified. No additional histologic findings appreciated. Cell morphology: N/A. No tumor seen at the margin. Pathological pattern: N/A. No tumor seen. Depth of invasion: N/A. No tumor seen. Scar tissue: Not Present Perineural invasion: Not Present Inflammation obscuring possible tumor presence: Not Present [facility] CLIA # [id number] Mohs earth science laboratory technician: Ledy Blas MD REPAIR: Secondary Intention The patient is status-post Mohs micrographic surgery. The surgical site was examined with attention to normal anatomic and functional relationships. After consideration and discussion of multiple options with the patient, it was determined that healing by secondary intention would offer the best chance for preservation/cheondoism of all normal anatomic and functional relationships. The patient verbalized understanding and agreed with this plan. It is also understood that should second intention healing be sub-optimal, additional procedures such as scar revision, steroid injection or dermabrasion may be recommended. The open wound was cleaned and a thick layer of vaseline was applied. A pressure dressing consisting of non-adherent gauze, gauze, and hypafix was applied. Wound care was discussed with the patient both orally and in writing. The patient stated understanding and agreement with the course of care. No postoperative medications were prescribed. The patient will follow up with their primary shoe associate. Dr. Velasco performed the entire surgery, and documentation used to initiate this operative report. I entered the information in our [employer] DocFlowsheet with the information provided by Dr. Velasco on his handwritten, paper format, surgical worksheet, which was then used to initiate the create of this note. Dr. Velasco then reviewed and edited the note as needed to complete the note. Kerline Duenas MA I have reviewed the note, edited it as necessary and performed the entire procedure. Rangel Velasco MD Multiple Punch Press Operator 04/28/2024 Rangel Velasco MD PROCEDURE/MINOR SURGICAL ORDER HAMMAD Final Result * CO TANGNTL BX SKIN SINGLE LES, CO TANGNTL BX SKIN EA SEP ADDL (04/18/2024 4:28 PM COMPLEX CARE NURSE) Narrative Sonia Mosquera MD - 04/18/2024 4:28 PM COMPLEX CARE NURSE Sonia Mosquera MD 04/18/2024 4:29 PM Derm - Shave Biopsy Date/Time: 04/18/2024 4:28 PM Performed by: Sonia Mosquera MD Authorized by: Sonia Mosquera MD Consent given by: patient Consent type: verbal Risks discussed with patient: bleeding, need for further testing/treatment, infection, scar formation, skin color change and non-diagnostic biopsy. Procedure details: Skin prep: isopropyl alcohol Anesthesia: lidocaine 1% with epi Location information Right florez and left forearm Number of standard lesions: 2 Total number of lesions: 2 Instrument(s) used: flexible razor blade Hemostasis achieved with aluminum chloride Wound dressing: bandage and petrolatum EBL: no blood loss Complications: none Wound care discussed with patient? yes Specimen(s) sent to pathology Patient preferred contact method(s): phone Sonia Mosquera MD PROCEDURE/MINOR SURGICAL ORDE RABLES Final Result * CO DESTRUCT BENIGN LESION, 1-14 (04/18/2024 4:28 PM COMPLEX CARE NURSE) Narrative Sonia Mosquera MD - 04/18/2024 4:28 PM COMPLEX CARE NURSE Sonia Mosquera MD 04/18/2024 4:29 PM Derm - Benign Lesion Destruction Date/Time: 04/18/2024 4:28 PM Performed by: Sonia Mosquera MD Authorized by: Sonia Mosquera MD Consent given by: patient Consent type: verbal Risks discussed with patient: pain, blistering, scar formation, skin color change, need for further testing/treatment, infection and risk of recurrence. Consent type: verbal Procedure details: Anesthesia: none Location information See note. Number of standard lesions: 1 Total number of lesions: 1 Destruction method: cryotherapy Cryotherapy cycles: 1 Cryotherapy time per cycle (seconds): 8-12 Wound care discussed with patient? yes Sonia Mosquera MD PROCEDURE/MINOR SURGICAL ORDE AMTIA Final Result * DERMATOPATHOLOGY (04/18/2024 12:00 AM COMPLEX CARE NURSE) Case Report Dermatopathology Report Case: [id number] Authorizing Provider: Sonia Mosquera MD Collected: 04/18/2024 12:00 AM Ordering Location: [facility] - Received: 04/18/2024 04:41 PM Dermatology Pathologist: Kelsey Gomez MD Specimens: A) - Skin, right florez B) - Skin, left forearm 5:40 PM [facility] Final Diagnosis Specimen A. SKIN, right florez: BASAL CELL CARCINOMA, INFILTRATIVE PATTERN (C44.712) Specimen B. SKIN, left forearm: LICHEN PLANUS-LIKE KERATOSIS (BENIGN LICHENOID KERATOSIS) (L82.1) 5:40 PM COMPLEX CARE NURSE DERMATOPATHOLOGY LABORATORY Clinical History A: SCC vs BCC B: R/O BCC 5:40 PM [facility]MAT[facility] Gross Description Specimen A: Received is one formalin filled container labeled with the patient's name and designated right florez. The specimen consists of a shave biopsy measuring 10x8x1 mm. Jar 0. Specimen B: Received is one formalin filled container labeled with the patient's name and designated left forearm. The specimen consists of a shave biopsy measuring 8x6x1 mm. Jar 0. 5:40 PM COMPLEX CARE NURSE DERMATOPATHOLOGY LABORATORY Microscopic Description Specimen A. SKIN, right florez: Within the dermis there are nodular aggregates of basaloid cells associated with fibromyxoid stroma and epithelial-stromal clefts. At the advancing margin of the neoplasm, there are smaller angulated nests that infiltrate the dermis. Specimen B. SKIN, left forearm: The epidermis is mildly acanthotic. There is a lichenoid infiltrate with vacuolar changes of basilar keratinocytes and scattered necrotic keratinocytes. 5:40 PM COMPLEX CARE NURSE DERMATOPATHOLOGY LABORATORY Disclaimer An external and internal positive and negative controls are appropriate for the histochemical, immunohistochemical and immunofluorescence stain(s) in this case (if any), except where stated explicitly. The performance characteristics of the stain(s) cited in this report were developed and its performance characteristic determined by the Dermatopathology Laboratory at [facility], directed by Dr. Kandace Gordon. These tests need not be, and therefore are not, approved by the [place] Food and Drug Administration. The tests are used for clinical purposes. Billing Codes Specimen Charges Stain Charges 44204 30075 1 1 5 5:40 PM COMPLEX CARE NURSE DERMATOPATHOLOGY LABORATORY Embedded Images 5 5:40 PM COMPLEX CARE NURSE DERMATOPATHOLOGY LABORATORY Pathology/Cytology TISSUE SPECIMEN FROM SKIN / Unknown 04/18/2024 04/18/2024 4:41 PM COMPLEX CARE NURSE Miscellaneous samples (specimen) TISSUE SPECIMEN FROM SKIN / Unknown 04/18/2024 04/18/2024 4:41 PM COMPLEX CARE NURSE [facility] Cinthia Mosquera MD LAB - PATHOLOGY/CYTOLOGY BRANDY LEVI Final Result DERMATOPATHOLOGY LABORATORY [facility] - Department of Dermatology [facility] [address] [place] [address], [address] [phone] * Mammo Bilat Screening W Cecilio (01/07/2024 12:15 PM COMPLEX CARE NURSE) Anatomical Region Laterality Modality Breast Bilateral Mammography 01/07/2024 1:48 PM COMPLEX CARE NURSE Impressions 01/07/2024 1:52 PM COMPLEX CARE NURSE IMPRESSION: No mammographic evidence of malignancy in either breast. ASSESSMENT: BIRADS Category 2: Benign finding(s). RECOMMENDATION: Bilateral screening mammogram in one year. Thank you for allowing us to participate in the care of your patient. [facility] utilizes [employer] as a reminder system to notify patients of their next recommended mammogram. > Interpreting Provider: Cinthia Leal MD on 01/07/2024 1:52 PM Narrative 01/07/2024 1:52 PM COMPLEX CARE NURSE EXAMINATION: Digital screening mammogram. Low-dose full-field digital breast tomosynthesis examination was performed with synthetic 2D images. Computer assisted detection was utilized. DATE: 01/07/2024 12:15 PM PRIOR: 2021 and prior mammograms dating back to 2019. BREAST PARENCHYMAL DENSITY: There are scattered areas of fibroglandular density. FINDINGS: No suspicious masses, areas of architectural distortion or microcalcifications are evident on synthetic 2D mammogram or tomosynthesis images. Kassandra Allen CERTIFIED HOME HEALTH AIDE-ACCOUNT DEVELOPMENT REPRESENTATIVE MAMMO ORDERABLES Final R esult * DEXA BONE DENSITY AXIAL SKELETON (03/18/2021 11:52 AM COMPLEX CARE NURSE) Anatomical Region Laterality Modality Nuclear Medicine 03/18/2021 1:11 PM COMPLEX CARE NURSE Impressions 03/18/2021 1:12 PM COMPLEX CARE NURSE IMPRESSION: Normal bone mineral density of the hips. WORLD HEALTH ORGANIZATION DEFINITIONS NORMAL= T-Score at or above -1.0 SD OSTEOPENIA = T-Score between -1 and -2.5 SD OSTEOPOROSIS = T-Score at or below -2.5 SD > Interpreting Provider: Janeen Gardiner on 03/18/2021 1:12 PM Narrative 03/18/2021 1:12 PM COMPLEX CARE NURSE BONE MINERAL DENSITY STUDY: INDICATION: 70-year-old for osteoporosis screening with lumbar fusion hardware. COMPARISON: None FINDINGS: The mean bone mineral content of the left femoral neck is 1.027 g/cm2. The T-score is -0.1 consistent with normal bone mineral density. The mean bone mineral content of the left total hip is 1.051 g/cm2. The T-score is 0.3 consistent with normal bone mineral density. The mean bone mineral content of the right femoral neck is 1.013 g/cm2. The T-score is -0.2 consistent with normal bone mineral density. The mean bone mineral content of the right total hip is 1.043 g/cm2. The T-score is 0.3 consistent with normal bone mineral density. FRAX 10 year fracture risk Major osteoporotic fracture: 17.7% Hip fracture: 1.0% Procedure Note Janeen Gardiner DO - 03/18/2021 BONE MINERAL DENSITY STUDY: INDICATION: 70-year-old for osteoporosis screening with lumbar fusion hardware. COMPARISON: None FINDINGS: The mean bone mineral content of the left femoral neck is 1.027 g/cm2. The T-score is -0.1 consistent with normal bone mineral density. The mean bone mineral content of the left total hip is 1.051 g/cm2.The T-score is 0.3 consistent with normal bone mineral density. The mean bone mineral content of the right femoral neck is 1.013 g/cm2. The T-score is -0.2 consistent with normal bone mineral density. The mean bone mineral content of the right total hip is 1.043 g/cm2.The T-score is 0.3 consistent with normal bone mineral density. FRAX 10 year fracture risk Major osteoporotic fracture: 17.7% Hip fracture: 1.0% IMPRESSION: Normal bone mineral density of the hips. WORLD HEALTH ORGANIZATION DEFINITIONS NORMAL= T-Score at or above -1.0 SD OSTEOPENIA = T-Score between -1 and -2.5 SD OSTEOPOROSIS = T-Score at or below -2.5 SD > Interpreting Provider: Janeen Gardiner on 03/18/2021 1:12 PM us Jelena Paul MD DEXA ORDERABLES Final Result * ENDOSCOPY, COLON, SCREENING (10/31/2019 7:40 AM CDT) Report Endoscopy POC _ Patient Name: Quinn Holbrook Procedure Date: 10/31/2019 7:40 AM Date of : 1950 Admit Type: Outpatient Age: 68 Gender: Female Ethnicity: Not or Race: White Attending MD: Terrence Hernandez MD _ Procedure: Colonoscopy Indications: Screening for colorectal malignant neoplasm Providers: Terrence Hernandez MD (Doctor), Tyesha Curry RN Patient Profile: 68yo female here for average risk colon cancer screening Referring MD: Jelena Paul MD (Referring MD) Medicines: Monitored Anesthesia Care Complications: No immediate complications. _ Procedure: Pre-Anesthesia Assessment: - Prior to the procedure, a History and Physical was performed, and patient medications, allergies and sensitivities were reviewed. The patient's tolerance of previous anesthesia was reviewed. - The risks and benefits of the procedure and the sedation options and risks were discussed with the patient. All questions were answered and informed consent was obtained. - Prior Anticoagulants: The patient has taken no previous anticoagulant or antiplatelet agents. - ASA Grade Assessment: III - A patient with severe systemic disease. After I obtained informed consent, the scope was passed under direct vision. Throughout the procedure, the patient's blood pressure, pulse, and oxygen saturations were monitored continuously. The Colonoscope was introduced through the anus and advanced to the cecum, identified by appendiceal orifice and ileocecal valve. The colonoscopy was performed without difficulty. The patient tolerated the procedure well. The quality of the bowel preparation was evaluated using the BBPS ([place] Bowel Preparation Scale) with scores of: Right Colon = 2 (minor amount of residual staining, small fragments of stool and/or opaque liquid, but mucosa seen well), Transverse Colon = 3 (entire mucosa seen well with no residual staining, small fragments of stool or opaque liquid) and Left Colon = 3 (entire mucosa seen well with no residual staining, small fragments of stool or opaque liquid). The total BBPS score equals 8. The quality of the bowel preparation was good. The ileocecal valve, appendiceal orifice, and rectum were photographed. Impression: - The entire examined colon is normal. - No specimens collected. Findings: The perianal and digital rectal examinations were normal. The colon (entire examined portion) appeared normal. - Retroflexion in the rectum was not successfull despite multiple attempts. Careful forward viewing was done to examinate the rectum. _ Recommendation: - Discharge patient to home. - Patient has a contact number available for emergencies. The signs and symptoms of potential delayed complications were discussed with the patient. Return to normal activities tomorrow. Written discharge instructions were provided to the patient. - Resume previous diet. - Repeat colonoscopy in 10 years for screening purposes. Procedure Code(s): --- Professional --- 87155, Colonoscopy, flexible; diagnostic, including collection of specimen(s) by brushing or washing, when performed (separate procedure) --- Technical --- 67342, Colonoscopy, flexible; diagnostic, including collection of specimen(s) by brushing or washing, when performed (separate procedure) Diagnosis Code(s): --- Professional --- Z12.11, Encounter for screening for malignant neoplasm of colon --- Technical --- Z12.11, Encounter for screening for malignant neoplasm of colon CPT copyright 2017 [employer]. All rights reserved. The codes documented in this report are preliminary and upon data coordinator review may be revised to meet current compliance requirements. ___ Terrence Hernandez MD 10/31/2019 8:47:59 AM Number of Addenda: 0 Note Initiated On: 10/31/2019 7:[address] [facility] ENDOSCOPY 10/31/2019 7:40 AM CDT Narrative Procedure Note Terrence Hernandez MD - 10/31/2019 8:48 AM CDT Colonoscopy done today for average risk screening. No polyps noted.Repeat colonoscopy in 10 years for screening purposes. us Terrence Hernandez MD GI PROCEDURE ORDERABLES Ed ited Result - Final [facility] ENDOSCOPY * HEPATITIS C AB W/RFLX TO HCV RNA QN PCR (03/24/2016 9:35 AM COMPLEX CARE NURSE) Hepatitis C Antibody NON-REACTI VE NON-REACT [facility] ([facility]) Signal/Cutoff 0.02 <1.00 [facility] ([facility]) Comment: REPORT COMMENT: FASTING:YES Test Performed at: [facility] [address] [place] [address] FRANCISCO J DAVILA DO,MPH 03/24/2016 9:35 AM COMPLEX CARE NURSE 03/24/2016 9:35 AM COMPLEX CARE NURSE us Jelena Paul MD LAB - CHEMISTRY ORDER [facility]AD Final Result Performing Organization Address City/[facility]/ZIP Co de Phone Number [facility] ([facility]) [address] from Last 3 Months or Most Recently Relevant to Health Maintenance Insurance MEDICARE [facility] MEDICARE [facility] Advance Directives * Full Code (Latest Code Status on File) Date Activated Date Inactivated Comments 01/28/2010 1:10 PM 01/29/2010 10:42 PM Care Teams Organic Section Technical Lead Relationship Specialty Start Date End Date Kassandra Allen APRN-BART [address] [place] [phone] PCP - General Nurse Practitioner 01/07/24 Tammy Cook MD [address] [address] Obstetrics and Gynecology 09/23/18 Sonia Mosquera MD [address] [place] [address] Dermatology 09/23/18 Isaac Flores MD [address] [place] [address] Gastroenterology 09/23/18 Francisco J Eastman MD [address] [place] [address] Pain Management Anesthesiology 09/23/18
--- OUTSIDE RECORDS SUMMARY | 2024-06-21 14:19 | XMS_ITS | Referral Summary ---
Author Organization [address] Address [address] [place] [id number] Care Team Providers Care Candy Depositing Machine Operator Name Role Phone Madalyn Car MD Primary Care Provider Tammy Cook MD Unavailable [phone] Sonia Mosquera MD Unavailable [phone] Encounters Date Type Department Care Team Description 04/05/2024 Results Follow-Up [facility] at [address] [address] Sapna Roberts NP 04/05/2024 2:50 PM COMMERCIAL LITIGATION ASSOCIATE Ancillary Procedure [facility] Imaging at [address] [phone] Acute cough 04/05/2024 2:15 PM COMMERCIAL LITIGATION ASSOCIATE Office Visit [facility] Medical [facility] at [address] [phone] Sapna Roberts NP Acute cough (Primary Dx) from Last 3 Months Allergies No known active allergies Medications mupirocin (BACTROBAN) 2 % ointmentIndication s:Paronychia of great toe, left Apply topically 3 (three) times a day 22 g 10/21/19 22 Active clobetasoL (TEMOVATE) 0.05 % ointment Apply 0.5 application topically 3 (three) times a week Apply to affected area on genital area BID then taper to MWF. 30 day supply 04/24/19 21 Active gabapentin (NEURONTIN) 600 mg tablet Take 1 tablet (600 mg total) by mouth 3 (three) times a day 12/26/19 22 Active meloxicam (MOBIC) 15 mg tablet 05/15/19 23 Active chlorhexidine (PERIDEX) 0.12 % solution RINSE WITH 1/2 OZ AFTER BREAKFAST AND BEFORE BEDTIME. NO EATING OR DRINKING FOR 30 MINUTES AFTER RINSING. 08/27/19 23 Active clotrimazole 1 % creamIndications:V ulvar irritation Apply topically 2 (two) times a day For 14 days 30 g 09/06/19 23 Active cyclobenzaprine (FLEXERIL) 10 mg tablet Take 1 tablet (10 mg total) by mouth 3 (three) times a day 03/07/19 24 Active rosuvastatin (CRESTOR) 10 mg tabletIndications: High cholesterol TAKE 1 TABLET EVERY DAY 90 tablet 3 04/06/19 24 Active losartan (COZAAR) 25 mg tabletIndications: Benign hypertension with stage 3a chronic kidney disease (HCC) Take 1 tablet (25 mg total) by mouth daily 90 tablet 1 07/01/19 24 Active sertraline (ZOLOFT) 100 mg tabletIndications: Mild depression,General ized anxiety disorder TAKE 1 TABLET EVERY DAY 90 tablet 3 09/06/19 24 Active ALPRAZolam (XANAX) 0.25 mg tabletIndications: Situational anxiety Take 1 tablet (0.25 mg total) by mouth every 8 (eight) hours as needed (flight anxiety) 6 tablet 11/05/19 24 Active levothyroxine (SYNTHROID) 125 mcg tabletIndications: Acquired hypothyroidism TAKE 1 TABLET IN CARDIOPULMONARY SPECIALIST BEFORE BREAKFAST. 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 in remission Assessment & Plan (03/11/2023 5:13 PM COMMERCIAL LITIGATION ASSOCIATE): Remains in remission. 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 Cook regularly at [facility]. Now once a year High risk HPV negative. Bx in showed LS&A and ACD. Rx: [facility] ointment + Protopic ointment. Protopic too irritating. Last Assessment & Plan: Stable - Continue clobetasol ointment to the entire vulvar vaginal area daily - Continue calcipotriene to the perianal area Assessment & Plan (03/11/2023 5:14 PM COMMERCIAL LITIGATION ASSOCIATE): Chronic. Follows with Dermatology. Continue medication and care per specialists MIKEY (obstructive sleep apnea) 11/19/2016 Assessment & Plan (03/11/2023 5:13 PM COMMERCIAL LITIGATION ASSOCIATE): Noncompliant with CPAP most of the time due to intolerance. We did discuss that uncontrolled sleep apnea can make her more fatigued and affect her memory. Encouraged better compliance Generalized anxiety disorder 01/22/2011 Benign hypertension with stage 3a chronic kidney disease 08/12/2010 Hypothyroidism 08/12/2010 Venous insufficiency (chronic) (peripheral) 07/18 Resolved Problems Problem Noted Date Diagnosed Date Resolved Date Chronic kidney disease, stage 3a 03/16/2021 03/11/2023 Mild depression 03/07/2021 09/05/2022 Immunizations Immunization Administration Dates Next Due Hep A, Adult 09/22/2016,03/24/2016 Influenza, Quad, Adjuvantate d, Intramuscular 12/10/2022,12/02/2021,12/03/2020 Influenza, Quadrivalent, Minal l Culture-based MDCK, Preservative Free, Antibiotic Free, Intramuscular 12/13/2016 Influenza, Quadrivalent, Spl it, Preservative Free, Intramuscular 11/19/2019,12/17/2015,12/26/2014 Influenza, Trivalent, Adjuva nted, Intramuscular 11/23/2023,12/21/2017 Influenza, Trivalent, High D ose, Split, Preservative Free, Intramuscular 12/07/2018 Influenza, Trivalent, IM (MDV) 12/13/2016,2014,02/02/2013 Influenza, Trivalent, Split, Preservative Free, Intradermal 11/14/2011 Influenza, Unspecified 11/19/2019,2018,12/21/2017,12/12 Influenza, Whole 01/10/2014 Moderna Sars-cov-2 Monovalen t Booster Vaccination (12+ YRS) 12/02/2021 Pneumococcal Conjugate PCV 13 07/17/2017 Pneumococcal Conjugate Pcv20 09/18/2022 Pneumococcal Polysaccharide PPV23 09/26/2019, Tdap 03/24/2016 ZOSTER LIVE 02/02/2013 ZOSTER Recombinant 02/03/2023,09/18/2022 Social History Tobacco Use Types Packs/Day Years Used Date Smoking Tobacco: Former Cigarettes 1 27 0 02/16/1969 - 02/17/1996 Smokeless Tobacco: Never Tobacco Cessation:Counseling Given: Not Answered Comments:stop and start through years of 1969 and 1996 PHQ-2 Answer Date Recorded PHQ-2 Total Score (If total score is 3 or more points, staff should administer the PHQ-9) 3 03/11/2023 Comments No Sex and Gender Information Value Date Recorded Sex Assigned at Not on file Legal Sex Female 10:50 AM COMMERCIAL LITIGATION ASSOCIATE Gender Identity Female 03/08/2023 10:13 PM COMMERCIAL LITIGATION ASSOCIATE Sexual Orientation Straight 03/08/2023 10 :13 PM COMMERCIAL LITIGATION ASSOCIATE Last Filed Vital Signs Vital Sign Reading Time Taken Comments Blood Pressure 138/80 04/05/2024 2:14 PM COMMERCIAL LITIGATION ASSOCIATE Pulse 78 04/05/2024 2:14 PM COMMERCIAL LITIGATION ASSOCIATE Temperature 36.7 C (98 F) 04/05/2024 2:14 PM COMMERCIAL LITIGATION ASSOCIATE Respiratory Rate 20 04/05/2024 2:14 PM COMMERCIAL LITIGATION ASSOCIATE Oxygen Saturation 98% 04/05/2024 2:14 PM COMMERCIAL LITIGATION ASSOCIATE Inhaled Oxygen Concentration - - Weight 96.2 kg (212 lb) 04/05/2024 2:14 PM COMMERCIAL LITIGATION ASSOCIATE Height 172.7 cm (5' 8 ) 09/18/2023 2:36 PM CDT Body Mass Index 32.23 09/18/2023 2:36 PM CDT Plan of Treatment Not on file Procedures Procedure Name Priority Date/Time Associated Diagnosis Comments XR CHEST PA LATERAL 2 VIEWS Schedule CARSON, Read CARSON (Appt Today, Awaiting Results) 04/05/2024 2:56 PM COMMERCIAL LITIGATION ASSOCIATE Acute cough POC INFLUENZA A/B, COVID-19 ANTIGEN Routine 04/05/2024 2:36 PM COMMERCIAL LITIGATION ASSOCIATE Acute cough HM COLONOSCOPY Routine 10/31/2019 from Last 3 Months or Most Recently Relevant to Health Maintenance Results * XR Chest Pa Lateral 2 Views (04/05/2024 2:56 PM COMMERCIAL LITIGATION ASSOCIATE) Anatomical Region Laterality Modality Body, Chest N/A Digital Radiogra phy 04/05/2024 5:47 PM COMMERCIAL LITIGATION ASSOCIATE Narrative 04/05/2024 5:58 PM COMMERCIAL LITIGATION ASSOCIATE EXAM DESCRIPTION: XR CHEST PA LATERAL 2 VIEWS REASON FOR STUDY: cough, possibly aspirated on pills 04/04. Increased cough Pt complains of cough, possibly aspirated some pills yesterday morning. History of cervical cancer 14 years ago. No surgery to heart, lungs, or chest. Non-smoker. TECHNIQUE: 2 radiographic view(s) of the chest. COMPARISON: None available FINDINGS: LUNGS: Mild bibasilar atelectasis and/or scarring. No focal pulmonary parenchymal consolidation, pleural effusion, or pneumothorax. HEART/MEDIASTINUM: Cardiac silhouette normal in size. Mediastinal and hilar contours appear normal. LINES/TUBES: None. BONES: No acute osseous abnormality. Incompletely imaged cervical discectomy and instrumented fusion IMPRESSION: No acute cardiopulmonary abnormality. THIS IS AN ELECTRONICALLY VERIFIED FINAL REPORT 04/05/2024 5:58 PM - Electronically signed by Leah Natarajan M.D. AT T: Report ID: [id number] Reading Location: [id number] Procedure Note Leah Natarajan MD - 04/05/2024 EXAM DESCRIPTION: XR CHEST PA LATERAL 2 VIEWS REASON FOR STUDY: cough, possibly aspirated on pills 04/04. Increased cough Pt complains of cough, possibly aspirated some pills yesterday morning. History of cervical cancer 14 years ago. No surgery to heart, lungs, orchest. Non-smoker. TECHNIQUE: 2 radiographic view(s) of the chest. COMPARISON: None available FINDINGS: LUNGS: Mild bibasilar atelectasis and/or scarring. No focal pulmonary parenchymal consolidation, pleural effusion, or pneumothorax. HEART/MEDIASTINUM: Cardiac silhouette normal in size. Mediastinal andhilar contours appear normal. LINES/TUBES: None. BONES: No acute osseous abnormality. Incompletely imaged cervical discectomy and instrumented fusion IMPRESSION: No acute cardiopulmonary abnormality. THIS IS AN ELECTRONICALLY VERIFIED FINAL REPORT 04/05/2024 5:58 PM - Electronically signed by Leah Natarajan M.D. AT T: Report ID: [id number] Reading Location: [id number] Sapna Roberts VP COMMUNICATIONS IMG XR PROCEDURES Final Re sult * POC Influenza A/B, COVID-19 antigen (04/05/2024 2:36 PM COMMERCIAL LITIGATION ASSOCIATE) Influenza A Ag, POC Negative Negative [facility] Influenza B Ag, POC Negative Negative [facility] COVID-19 Ag POC Presumptive Negative Presumptive Negative, Invalid [facility] 04/05/2024 2:36 PM COMMERCIAL LITIGATION ASSOCIATE Sapna Roberts NP POINT OF CARE TEST ORDERAB LES Final Result [facility] [address] * COLONOSCOPY (10/31/2019) Scribed Colonoscopy Normal Comment:[facility] everywhere 10/31/2019 us Historical Provider MD HEALTH MAINTENANCE Final Result from Last 3 Months or Most Recently Relevant to Health Maintenance Insurance MEDICARE [facility] MEDICARE [facility] Care Teams Candy Depositing Machine Operator Relationship Specialty Start Date End Date Madalyn Car MD PCP - General Family Practice 01/14/22 Tammy Cook MD [address] [facility] [address] [place] [address] Referring Physician Obstetrics and Gynecology 09/05/22 Sonia Mosquera MD [address] [place] [address] Referring Physician Dermatology 09/05/22
--- OUTSIDE RECORDS SUMMARY | 2024-06-21 14:19 | XMS_ITS | Clinical Summary ---
Author Organization [facility] [address] 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 REPEAT TSH IN 6 TO [...] of vagina 01/14/2022 Overview (01/14/2022): care per organizational effectiveness director. in remission Assessment & Plan (03/11/2023 5:13 PM SURGICAL FIRST ASSISTANT): Remains in remission. Follows with gynecology at [facility] Geographic tongue 07/23/2020 Overview (01/14/2022): Last [...] oral treatment Sees Dr. Cook regularly at [facility]. Now once a year High risk HPV negative. Bx in showed LS&A and ACD. Rx: [facility] ointment + Protopic ointment. Protopic too irritating. Last Assessment & Plan: Stable - Continue clobetasol ointment to the entire vulvar vaginal area daily - Continue calcipotriene to the perianal area Assessment & Plan (03/11/2023 5:14 PM SURGICAL FIRST ASSISTANT): Chronic. Follows with Dermatology. Continue medication and care per specialists MIKEY (obstructive sleep apnea) 11/19/2016 Assessment & Plan (03/11/2023 5:13 PM SURGICAL FIRST ASSISTANT): Noncompliant with CPAP most of the time [...] 3a 03/16/2021 03/11/2023 Mild depression 03/07/2021 09/05/2022 Encounters Date Type Department Care Team Description 04/05/2024 2:50 PM SURGICAL FIRST ASSISTANT Ancillary Procedure [facility] Imaging at [address] [address] Acute cough 04/05/2024 2:15 PM SURGICAL FIRST ASSISTANT Office Visit [facility] at [address] [address] Sapna Roberts, FLORINDA Acute cough (Primary Dx) 04/05/2024 Results Follow-Up [facility] at [address] [address] Sapna Roberts, FOREST SUPERVISOR from Last 3 Months Immunizations Immunization Administration Dates Next Due Hep [...] 03/24/2016 ZOSTER LIVE 02/02/2013 ZOSTER Recombinant 02/03/2023,09/18/2022 Surgical History Surgery Date Site/Laterality Comments CHOLECYSTECTOMY HYSTERECTOMY W/ BILATERAL SALPINGOOPHORECTOMY LUMBAR SPINE SURGERY L3-S1 ? CERVICAL FUSION HYSTERECTOMY LASIK SPINE SURGERY Medical History Medical History Date Comments Anxiety Arthritis Cancer (HCC) Depression Hypertension Sleep apnea Hypothyroidism Family History Medical History Relation Name Comments Testicular cancer Brother 1 family members Coronary artery disease Brother 2 brother Hyperlipidemia Brother 2 brother Cerebral aneurysm Father family members of massive cerebral hemorrhgage Arthritis Mother family members Heart disease Mother family members Hypertension Mother family members Vision loss Mother family members Mental illness Other father's side of family Relation Name Status Comments Brother 1 family members Brother 2 brother Father family members Mother family members Other Social History Tobacco Use Types Packs/Day Years [...] on file Legal Sex Female 10:50 AM SURGICAL FIRST ASSISTANT Gender Identity Female 03/08/2023 10:13 PM SURGICAL FIRST ASSISTANT Sexual Orientation Straight 03/08/2023 10 :13 PM SURGICAL FIRST ASSISTANT Obstetrics History Para Term AB IAB SAB Ectopic Multiple Livin g Live Births 1 1 Date Outcome GA Total Labor Labor/2nd/3rd Weight Sex Type Anes PTL Niya A1 A5 Name Clin Para Vag-Spo nt Last Filed Vital Signs Vital Sign Reading Time Taken Comments Blood Pressure 138/80 04/05/2024 2:14 PM SURGICAL FIRST ASSISTANT Pulse 78 04/05/2024 2:14 PM SURGICAL FIRST ASSISTANT Temperature 36.7 C (98 F) 04/05/2024 2:14 PM SURGICAL FIRST ASSISTANT Respiratory Rate 20 04/05/2024 2:14 PM SURGICAL FIRST ASSISTANT Oxygen Saturation 98% 04/05/2024 2:14 PM SURGICAL FIRST ASSISTANT Inhaled Oxygen Concentration - - Weight 96.2 kg (212 lb) 04/05/2024 2:14 PM SURGICAL FIRST ASSISTANT Height 172.7 cm (5' 8 ) 09/18/2023 2:36 PM CDT Body Mass Index 32.23 09/18/2023 2:36 PM CDT Plan of Treatment Health Maintenance Due Date Last Done Comments Hepatitis B Screening 12/28/1968 Fall Risk Assessment 09/06/2023 09/05/2022, 01/15/20 22 Well Visit 65+ 09/06/2023 09/05/2022 Depression Screening 03/11/2024 03/11/2023, 03/11/2023, 09/05/2022, Additional history exists Covid-19 Vaccine (2023- 5 season) 2024 11/23/2023, 12/10/2022, 12/02/2021, Additional history exists Breast Cancer Screening-Mammogram 01/06/2025 01/07/2024, 01/07/2024, 03/18/2021, Additional history exists Osteoporosis Screening-Bone Density Scan 03/18/2026 03/18/2021, 03/18/2021, 03/18/2021 DTaP/Tdap/Td Vaccine (2 - Td or Tdap) 03/24/2026 03/24/2016 Colon Cancer Screening-Colonoscopy 10/30/20292019, 10/31/2019 Hepatitis C Screening Completed 03/24/2016 Pneumococcal vaccine 65+ Completed 023, 09/26/2019, 07/17/2017, Additional history exists Zoster Vaccine Completed 02/03/2023, 04/2022, 02/02/2013 Influenza Vaccine Completed 11/23/2023, , 12/02/2021, Additional history exists Procedures Procedure Name Priority Date/Time Associated Diagnosis Comments XR CHEST PA LATERAL 2 VIEWS Schedule CARSON, Read CARSON (Appt Today, Awaiting Results) 04/05/2024 2:56 PM SURGICAL FIRST ASSISTANT Acute cough POC INFLUENZA A/B, COVID-19 ANTIGEN Routine 04/05/2024 2:36 PM SURGICAL FIRST ASSISTANT Acute cough HM COLONOSCOPY Routine 10/31/2019 from Last 3 Months or Most Recently Relevant to Health Maintenance Results * XR Chest Pa Lateral 2 Views (04/05/2024 2:56 PM SURGICAL FIRST ASSISTANT) Anatomical Region Laterality Modality Body, Chest N/A Digital Radiogra phy 04/05/2024 5:47 PM SURGICAL FIRST ASSISTANT Narrative 04/05/2024 5:58 PM SURGICAL FIRST ASSISTANT EXAM DESCRIPTION: XR CHEST PA LATERAL 2 [...] Leah Natarajan M.D. AT T: Report ID: [id number] Reading Location: [id number] Procedure Note Leah Natarajan MD - 04/05/2024 [...] Leah Natarajan M.D. AT T: Report ID: [id number] Reading Location: [id number] us Sapna Roberts FOREST SUPERVISOR IMG XR PROCEDURES Final Re sult * POC Influenza A/B, COVID-19 antigen (04/05/2024 2:36 PM SURGICAL FIRST ASSISTANT) Influenza A Ag, POC Negative Negative [facility] Influenza B Ag, POC Negative Negative [facility] COVID-19 Ag POC Presumptive Negative Presumptive Negative, Invalid [facility] Nasal 04/05/2024 2:36 PM SURGICAL FIRST ASSISTANT Sapna Roberts NP POINT OF CARE TEST ORDERAB LES Final Result [facility] [address] * COLONOSCOPY (10/31/2019) Scribed HM Colonoscopy Normal Comment:[facility] Care everywhere 10/31/2019 Historical Provider HEALTH MAINTENANCE Final Result from Last 3 Months or Most Recently Relevant to Health Maintenance Insurance MEDICARE [facility] Address: [address] [address] [place] [address] [facility] MEDICARE [facility] Care Teams Exercise Manager Relationship Specialty Start Date End Date Madalyn Car MD PCP - General Family Practice 01/14/22 Tammy Cook MD [address] [facility] [address] [place] [id number] Referring Physician Obstetrics and Gynecology 09/05/22 Sonia Mosquera MD [address] [place] [address] Referring Physician Dermatology 09/05/22
[2024-06-21 14:49] LABS: Alanine Aminotransferase 26 U/L (6-35); Albumin Level 4.3 g/dL (3.5-5.1); Alkaline Phosphatase 104 U/L (38-126); Anion Gap 8 mmol/L (4-12); Aspartate Amino Transferase 36 U/L (14-36); Blood Urea Nitrogen 19 mg/dL (7-17); Calcium 8.9 mg/dL (8.4-10.2); Carbon Dioxide 25 mmol/L (22-30); Chloride 105 mmol/L (98-107); Cholesterol 120 mg/dL (0-200); Estimated Glomerular Filt Rate > 60; Glucose 107 mg/dL (65-110); HDL Direct 55 mg/dL; Potassium 4.6 mmol/L (3.4-5.0); Sodium 138 mmol/L (137-145); Triglycerides 172 mg/dL (<150)
[2024-06-21 14:59] LABS: Hemoglobin A1C 5.2 % (<5.7)
[2024-06-21 15:00] LABS: LDL Cholesterol Direct 43 mg/dL
[2024-06-21 15:32] LABS: Thyroid Stimulating Hormone Reflex < 0.015 uIU/mL (0.465-4.68)
[2024-06-21 16:20] LABS: Free T4 Free Thyroxine Reflex 1.19 ng/dL (0.78-2.19)
[2024-06-21 17:01] LABS: Total Triiodothyronine (T3) 1.39 NG/ML (0.97-1.69)
== END 2024-06-21 14:16 | disposition home or self-care (01) ==
LOC: ANHLAB 14:17
PROVIDERS: PCP Nurse Practitioner Family; Visit Provider Nurse Practitioner Family
DX: E03.9 Hypothyroidism, unspecified (principal); E78.5 Hyperlipidemia, unspecified; I10 Essential (primary) hypertension; Z13.1 Encounter for screening for diabetes mellitus
CPT/HCPCS: 36415; 80053; 80061; 83036; 84439; 84443; 84480

== ENCOUNTER 2025-01-24 11:32 | Outpatient (CLI) | payer MEDICARE, SELFPAY ==
[2025-01-24 11:53] LABS: Hematocrit 40.9 % (37.0-47.0); Hemoglobin 13.4 g/dL (12.0-15.0); Mean Corpuscular HGB Conc 32.8 g/dl (32-36); Mean Corpuscular Hemoglobin 30.7 pg (26-34); Mean Corpuscular Volume 93.6 fl (80-100); Platelet Count Result 163 k/mm3 (150-375); Red Blood Count 4.37 M/mm3 (4.2-5.4); White Blood Count 5.7 K/mm3 (4.5-10.0)
[2025-01-24 12:17] LABS: Alanine Aminotransferase 29 U/L (6-35); Albumin Level 4.1 g/dL (3.5-5.1); Alkaline Phosphatase 75 U/L (38-126); Anion Gap 5 mmol/L (4-12); Aspartate Amino Transferase 38 U/L (14-36); Bilirubin,Total 1.4 mg/dL (0.2-1.3); Blood Urea Nitrogen 23 mg/dL (7-17); Calcium 9.4 mg/dL (8.4-10.2); Carbon Dioxide 27 mmol/L (22-30); Chloride 103 mmol/L (98-107); Cholesterol 115 mg/dL (0-200); Estimated Glomerular Filt Rate 52; Glucose 86 mg/dL (65-110); HDL Direct 55 mg/dL; Potassium 4.2 mmol/L (3.4-5.0); Sodium 135 mmol/L (137-145); Total Protein 7.1 g/dL (6.3-8.2); Triglycerides 50 mg/dL (<150)
[2025-01-24 12:48] LABS: Thyroid Stimulating Hormone Reflex 0.020 uIU/mL (0.465-4.68)
[2025-01-24 17:55] LABS: Free T4 Free Thyroxine Reflex 1.30 ng/dL (0.78-2.19)
[2025-01-24 19:02] LABS: Total Triiodothyronine (T3) 1.14 NG/ML (0.82-1.58)
== END 2025-01-24 11:33 | disposition home or self-care (01) ==
PROVIDERS: PCP Nurse Practitioner Family; Visit Provider Nurse Practitioner Family
DX: E03.9 Hypothyroidism, unspecified (principal); F33.41 Major depressive disorder, recurrent, in partial remission; I10 Essential (primary) hypertension; E78.5 Hyperlipidemia, unspecified; E66.811 Obesity, class 1; K14.1 Geographic tongue; R35.1 Nocturia; N89.8 Other specified noninflammatory disorders of vagina; M47.816 Spondylosis without myelopathy or radiculopathy, lumbar region; Z85.44 Personal history of malignant neoplasm of other female genital organs; Z00.00 Encounter for general adult medical examination without abnormal findings
CPT/HCPCS: 36415; 80053; 80061; 82306; 84439; 84443; 84480; 85027